=== PATIENT | male | born 1965 | race Caucasian/White ===

== ENCOUNTER 2018-03-03 20:20 | Emergency (ER) | payer OTHER ==
[2018-03-03 20:48] VITALS: Ht 182.9 cm
[2018-03-03 22:57] VITALS: BP 110/68
== END 2018-03-03 22:57 | disposition home or self-care (01) ==
LOC: ED 20:20
DX: K40.90 Unilateral inguinal hernia, without obstruction or gangrene, not specified as recurrent (principal); Z88.0 Allergy status to penicillin